=== PATIENT | male | born 1980 | race Caucasian/White ===

== ENCOUNTER → 2023-11-17 09:48 | Outpatient (CLI) | payer OTHER, SELFPAY ==
--- NOTE | ~2023-11-17 | XR_ITS ---
Right Shoulder Technique: AP and axillary views were obtained. Clinical History: Pain Findings: No fracture or dislocation is seen. Osseous alignment is anatomic. The glenohumeral and acr omioclavicular joint spaces are preserved. Suspected calcific tendinitis near the rotator cuff insert ion versus enthesopathic change. Impression: Suspected calcific tendinitis near the rotator cuff insertion at the greater tuberosity versus enthes opathic change. Reviewed, dictated and finalized at location [facility]. [employer] Impression: Suspected calcific tendinitis near the rotator cuff insertion at the greater tu berosity versus enthesopathic change.
== END ==
PROVIDERS: PCP Family Medicine; Visit Provider Nurse Practitioner Family
DX: M25.511 Pain in right shoulder (principal)
CPT/HCPCS: 73030

== ENCOUNTER 2023-11-20 11:41 | Emergency (ER) | payer OTHER, SELFPAY ==
[2023-11-20 11:50] VITALS: BP 138/90; PULSE 79; RESP 18; TEMP 36.2; O2SAT 100
[2023-11-20 11:53] VITALS: BP 138/90; PULSE 79; RESP 18; TEMP 36.2; O2SAT 100
--- NOTE | 2023-11-20 11:57 | ED.EAR ---
HPI - Ear Problem General Chief complaint: Ear Stated complaint: Earache Time Seen by Provider: 11/20/23 11:43 Source: patient Mode of arrival: ambulatory Limitations: no limitations History of Present Illness HPI Narrative: Bala is a 43-year-old male patient presenting to clinic today with complaints of right ear pain times 1-2 days. He reports pain is worse with sneezing, coughing, and eating. Denies any fever or chills. Denies any dental pain. Related Data Home Medications Medication Instructions Recorded Confirmed lisinopril 10 mg tablet 10 mg PO DAILY 11/20/23 11/20/23 Allergies Allergy/AdvReac Type Severity Reaction Status Date / Time No Known Allergies Allergy Verified 11/20/23 11:51 Review of Systems Review of Systems: Pertinent positives per HPI. Patient denies any fever, chills, rash, headache, visual changes, dizziness, cough, runny nose, sore throat, shortness of breath, chest pain, palpitations, nausea, vomiting, diarrhea, constipation, abdominal pain, or any urinary issues. [facility] Past Medical History Medical History Acid reflux Anxiety Malone esophagus Chronic rhinitis Chronic right shoulder pain Chronic right SI joint pain Encounter to establish care Family history of early father passed of 3rd DC at 38yrs old Generalized anxiety disorder with panic attacks Hyperlipidemia Hypertension IBS (irritable bowel syndrome) JAMEEL on CPAP Right shoulder pain Tobacco abuse Surgical History Surgical History History of nasal septoplasty History of shoulder surgery Right Shoulder 2005 & 2008 Family History Family History Father Alcoholism Hypertension Heart disease Mother Depression Sibling Depression Grandparent Diabetes mellitus Social History Social History Smoking packs per day: 1 Smoking cigarettes per day: 20.0 Years smoked: 15 Smoking pack-years: 15.00 Smoking status: Current every day smoker Tobacco type: cigarettes and smokeless tobacco Smokeless tobacco user: chewing tobacco Alcohol intake: current Substance use: current Substance use type: marijuana Comments At the time of my signature, I reviewed and agree with the nursing past medical, surgical, social, and family history. There is no relevant family history pertinent to the patient complaint. Exam Narrative: General: Well-developed, well nourished, in no apparent distress Head: Normocephalic, atraumatic Eyes: Pupils equally round and reactive to light bilaterally, EOM intact, sclera and conjunctive clear, no discharge, lids normal Ears: Left tMs intact and clear, right TM intact, bulging, mucous fluid noted behind the TM with redness of the right external canal, tenderness to palpation over the tragus and pulling of the pinna, ear canals clear, no drainage, grossly hearing normal. Nose: Nares patent, no discharge, no inflammation, no sinus tenderness. Mouth: Oropharynx without lesions or masses, good dentition, MMM. Neck: Supple, trachea midline, no enlargement of anterior or posterior cervical nodes, no thyroid masses or goiter palpable. Cardio: Regular rate and rhythm, s1 and s2 normal, no murmur appreciated. Resp: Clear to auscultation bilaterally anteriorly and posteriorly, no rhonchi, rales, wheezing or rubs Course Course Emergency Course: Portions of this record may have been created with voice recognition software. Level of Care: Express Care Visit Vital Signs Vital signs: Vital Signs Temperature 36.2 C L 11/20/23 11:50 Pulse Rate 79 11/20/23 11:50 Respiratory Rate 18 11/20/23 11:50 Blood Pressure 138/90 11/20/23 11:50 Pulse Oximetry 100 11/20/23 11:50 Oxygen Delivery Room Air 11/20/23 11:50 T
== END 2023-11-20 12:02 | disposition home or self-care (01) ==
PROVIDERS: Emergency Provider Nurse Practitioner Family; PCP Nurse Practitioner Family
DX: H66.91 Otitis media, unspecified, right ear (principal); H60.311 Diffuse otitis externa, right ear; F17.210 Nicotine dependence, cigarettes, uncomplicated; F17.220 Nicotine dependence, chewing tobacco, uncomplicated; K21.9 Gastro-esophageal reflux disease without esophagitis; K22.70 Barrett's esophagus without dysplasia; E78.5 Hyperlipidemia, unspecified; I10 Essential (primary) hypertension; G47.33 Obstructive sleep apnea (adult) (pediatric)
CPT/HCPCS: 99213; G0463

== ENCOUNTER 2024-03-12 13:46 | Emergency (ER) | payer OTHER, SELFPAY ==
[2024-03-12] VITALS (19 sets, daily range): BP systolic 129–151; BP diastolic 75–101; PULSE 71–130; RESP 7–24; TEMP 36.6; O2SAT 94–100
--- NOTE | 2024-03-12 14:17 | ED.ANXIETY ---
HPI - Anxiety General Chief Complaint: Anxiety Stated Complaint: SOB Time Seen by Provider: 03/12/24 14:00 History of Present Illness HPI narrative: 43-year-old male present to the emergency department for evaluation of increased anxiety. Patient states he does have a history of anxiety but felt worsening symptoms starting yesterday. Patient found out yesterday he was getting a divorce. Patient describes increased anxiety does have associated chest tightness. Patient denies any chest pain. Patient is anxious and tearful upon arrival to the emergency department. patient denies any homicidal suicidal ideation. Related Data Home Medications Medication Instructions Recorded Confirmed lisinopril 10 mg tablet 10 mg PO DAILY 11/20/23 11/20/23 Allergies Allergy/AdvReac Type Severity Reaction Status Date / Time No Known Allergies Allergy Verified 03/12/24 13:59 Review of Systems Review of Systems: All systems reviewed & are unremarkable except as noted in HPI and below PMFSH Past Medical History Medical History Acid reflux Anxiety Malone esophagus Chronic rhinitis Chronic right shoulder pain Chronic right SI joint pain Encounter to establish care Family history of early father passed of 3rd OR at 38yrs old Generalized anxiety disorder with panic attacks Hyperlipidemia Hypertension IBS (irritable bowel syndrome) JAMEEL on CPAP Right shoulder pain Tobacco abuse Surgical History Surgical History History of nasal septoplasty History of shoulder surgery Right Shoulder 2006 & 2008 Family History Family History Father Alcoholism Hypertension Heart disease Mother Depression Sibling Depression Grandparent Diabetes mellitus Social History Social History Smoking packs per day: 1 Smoking cigarettes per day: 20.0 Years smoked: 15 Smoking pack-years: 15.00 Smoking status: Current every day smoker Tobacco type: cigarettes and smokeless tobacco Smokeless tobacco user: chewing tobacco Alcohol intake: current Substance use: current Substance use type: does not use Exam Narrative: APPEARANCE: Well appearing, no pain, no distress, well-nourished. HEAD: normocephalic, atraumatic. EYES: PERRLA/EOMI, conjunctivae clear. NOSE: Normal no drainage EARS:TMS clear with good light reflex. THROAT: Pharynx clear, no exudate. NECK: Supple. No adenopathy, no masses. RESPIRATORY: Airway patent, respirations nonlabored. Clear to auscultation bilaterally, no rales, rhonchi, wheezing. CARDIOVASCULAR: Regular rate and rhythm without murmurs rubs or gallops. ABDOMINAL: Soft, nontender, nondistended, normal bowel sounds MUSCULOSKELETAL: Moves all extremities. Strength/ROM intact, No edema, No calf tenderness. NEURO: Alert. Cranial nerves II through XII intact. grossly intact SKIN: Warm, dry. Normal Color PSYCHIATRIC: Anxious and tearful affect Course Course Emergency Course: Patient did feel improved with treatment. Patient continued to deny any homicidal or suicidal ideation. Vital Signs Vital signs: Vital Signs Temperature 97.9 F 03/12/24 13:54 Pulse Rate 130 H 03/12/24 13:54 Respiratory Rate 20 03/12/24 13:54 Blood Pressure 143/94 H 03/12/24 13:54 Pulse Oximetry 100 03/12/24 13:54 Oxygen Delivery Room Air 03/12/24 13:54 Temperature 97.9 F 03/12/24 13:54 Pulse Rate 91 03/12/24 17:30 Respiratory Rate 11 L 03/12/24 17:30 Blood Pressure 129/75 03/12/24 17:30 Pulse Oximetry 95 03/12/24 17:30 Oxygen Delivery Room Air 03/12/24 13:54 MDM - Anxiety MDM Narrative Medical decision making narrative: 43-year-old male presents emergency department for evaluation for chest tightness with associated anxie
[2024-03-12] MEDS: LORazepam INJ (*CRX) 2 MG/ML VIAL 1 MG IV PUSH ×2 (14:25→16:45)
[2024-03-12 14:29] LABS: Basophils Absolute Auto 0.1 K/mm3 (0.0-0.1); Basophils Percent Auto 0.8 % (0.2-1.2); Eosinophils Percent Auto 0.5 % (0-4.4); Hematocrit 48.1 % (42.0-52.0); Hemoglobin 17.9 g/dL (14.0-18.0); Immature Granulocyte Absolute 0.01 K/mm3 (0.00-0.031); Immature Granulocyte Percent A 0.2 % (0-0.5); Lymphocytes Absolute Auto 1.67 K/mm3 (0.9-3.2); Lymphocytes Percent Auto 25.9 % (18.3-44.2); Mean Corpuscular HGB Conc 37.2 g/dl (32-36); Mean Corpuscular Hemoglobin 32.8 pg (26-34); Mean Corpuscular Volume 88.3 fl (80-100); Mean Platelet Volume 9.1 fl (7.4-10.4); Monocytes Absolute Auto 0.4 K/mm3 (0.1-0.6); Monocytes Percent Auto 6.7 % (2.6-8.5); Neutrophils Absolute Auto 4.3 K/mm3 (1.3-6.7); Neutrophils Percent Auto 65.9 % (45.5-73.1); Platelet Count Result 332 k/mm3 (150-375); Red Blood Count 5.45 M/mm3 (4.6-6.20); Red Cell Distribution Width 12.6 % (11.5-14.5); White Blood Count 6.5 K/mm3 (4.5-10.0)
[2024-03-12] MEDS: BELLADONNA ALK/PHENOB ELIX 10 ML, MAG HYDROX/ALUMINUM HYD/SIMETH 30 ML, LIDOCAINE HCL 2... PO (14:47)
[2024-03-12 14:50] LABS: INR 0.9; Partial Thromboplastin Time 26.2 Seconds (22.3-36.8); Prothrombin Time 12.7 Seconds (11.1-14.7)
[2024-03-12 15:08] LABS: Troponin I < 0.012 ng/mL (0.000-0.034)
[2024-03-12] MEDS: SODIUM CHLORIDE 0.9% IV 1,000 ML 999 ML IV CONT (15:26)
[2024-03-12 15:55] LABS: Alanine Aminotransferase 38 U/L (6-50); Albumin Level 4.9 g/dL (3.5-5.1); Alkaline Phosphatase 107 U/L (38-126); Anion Gap 15 mmol/L (4-12); Aspartate Amino Transferase 37 U/L (17-59); Blood Urea Nitrogen 15 mg/dL (9-20); Calcium 9.7 mg/dL (8.4-10.2); Carbon Dioxide 16 mmol/L (22-30); Chloride 103 mmol/L (98-107); Estimated CRCL calculation 97 ml/min; Estimated Glomerular Filt Rate > 60; Glucose 120 mg/dL (65-110); Sodium 134 mmol/L (137-145)
[2024-03-12 17:15] LABS: Troponin I < 0.012 ng/mL (0.000-0.034)
== END 2024-03-12 17:31 | disposition home or self-care (01) ==
PROVIDERS: Emergency Provider Emergency Medicine
DX: F41.9 Anxiety disorder, unspecified (principal); R07.89 Other chest pain; I10 Essential (primary) hypertension; E78.5 Hyperlipidemia, unspecified; K21.9 Gastro-esophageal reflux disease without esophagitis; K22.70 Barrett's esophagus without dysplasia; K58.9 Irritable bowel syndrome, unspecified; G47.33 Obstructive sleep apnea (adult) (pediatric); F17.210 Nicotine dependence, cigarettes, uncomplicated; F17.290 Nicotine dependence, other tobacco product, uncomplicated; Z79.899 Other long term (current) drug therapy
CPT/HCPCS: 36415; 80053; 84484; 85025; 85610; 85730; 96361; 96374; 99284; A9270; J2060; J7030